=== PATIENT | female | born 1960 | race Caucasian/White ===

== ENCOUNTER 2022-01-14 09:35 | Inpatient (IN) | payer MEDICAID ==
[~2022-01-14] VITALS: Ht 121.9 cm; Wt 62.6 kg
[2022-01-14] MEDS ORDERED: LEVO25TA9 PO (09:49)
[2022-01-14] MEDS: HALOPERIDOL LACTATE 5 MG/ML VIAL IM ONE ×2 (11:04→15:03)
[2022-01-14] MEDS: DiphenhydrAMINE HCL 50 MG/ML VIAL IM ONE ×2 (11:04→15:02)
[2022-01-14] MEDS: LORazepam 2 MG/ML VIAL IM ONE ×2 (11:04→15:02)
[2022-01-14] MEDS ORDERED: ZOLPIDEM TARTRATE 10 MG TABLET PO PRN (11:45)
[2022-01-14] MEDS ORDERED: HALOPERIDOL 5 MG TABLET PO PRN (11:45)
[2022-01-14] MEDS ORDERED: LORazepam 2 MG TABLET PO PRN (11:45)
[2022-01-14 12:26] LABS: BASOPHILS % (AUTO) 0.3 % (0.0-2.0); HEMATOCRIT 37.8 % (36-46); HEMOGLOBIN 12.5 g/dL (12.0-16.0); LYMPHOCYTES # (AUTO) 1.6 K/uL (1.0-4.8); LYMPHOCYTES % (AUTO) 35.6 % (22.0-44.0); MEAN CORPUSCULAR HEMOGLOBIN 29.9 pg (26.0-34.0); MEAN CORPUSCULAR VOLUME 91 fL (80-100); MONOCYTES # (AUTO) 0.4 K/uL (0.1-1.0); MONOCYTES % (AUTO) 8.2 % (2.0-9.0); NEUTROPHILS # (AUTO) 2.2 K/uL (1.8-7.7); NEUTROPHILS % (AUTO) 50.9 % (40.0-70.0); PLATELET COUNT (AUTO) 252 K/uL (150-450); RED BLOOD CELL COUNT(AUTO) 4.18 MIL/uL (4.00-5.20); RED CELL DISTRIBUTION WIDTH 16.2 % (11.5-14.5)
[2022-01-14 12:36] LABS: ANION GAP 6 mmol/L (8-16); CALCIUM, TOTAL 8.8 mg/dL (8.8-10.5); CARBON DIOXIDE 28 mmol/L (22-29); CHLORIDE 101 mmol/L (98-107); CREATININE 0.65 mg/dL (0.60-1.30); GLUCOSE,RANDOM 97 mg/dL (70-110); POTASSIUM 3.2 mmol/L (3.5-5.1); SODIUM SERUM 135 mmol/L (136-145); UREA NITROGEN, BLOOD 7 mg/dL (7-18)
[2022-01-14 12:39] LABS: GLOMERULAR FILTR. RATE CALC > 60 mL/min (>60)
[2022-01-14 12:42] LABS: ALANINE AMINOTRANSFERASE 17 U/L (12-78); ALBUMIN 3.1 g/dL (3.4-5.0); ALKALINE PHOSPHATASE 56 U/L (46-116); ASPARTATE AMINOTRANSFERASE 21 U/L (15-37); BILIRUBIN,TOTAL 0.4 mg/dL (0.1-1.0); TOTAL PROTEIN, SERUM 6.6 g/dL (6.4-8.2)
[2022-01-14 20:01] LABS: COVID AG,FIA SOURCE NASAL SWAB
[2022-01-15 10:00] VITALS: BP 123/55
[2022-01-15] MEDS ORDERED: NICOTINE 7 MG/24 HOUR PATCH TD ONE (13:00)
[2022-01-15] MEDS ORDERED: LEVO88TA7 PO (13:01)
[2022-01-15] MEDS ORDERED: FLUD.1 PO (13:01)
[2022-01-15] MEDS ORDERED: ALEN70TA80 PO (13:01)
[2022-01-15] MEDS ORDERED: RISP0.5T39 PO (13:01)
[2022-01-15] MEDS ORDERED: HYDR-3887 PO (13:01)
[2022-01-15] MEDS ORDERED: ATOR20TA65 PO (13:01)
[2022-01-15 16:34] VITALS: BP 117/70
[2022-01-15] MEDS: FLUDROCORTISONE ACETATE 0.1 MG TABLET PO SCH (16:34)
[2022-01-15] MEDS: HYDROCORTISONE 10 MG TABLET PO SCH (16:34)
[2022-01-15] MEDS: ATORVASTATIN CALCIUM 20 MG TABLET PO SCH (20:34)
[2022-01-16] VITALS: BP 112/66
[2022-01-16] MEDS: LEVOTHYROXINE SODIUM 88 MCG TABLET PO SCH ×2 (05:31→06:01)
[2022-01-16] MEDS: ALENDRONATE SODIUM 70 MG TABLET PO SCH ×2 (05:32→06:01)
[2022-01-16] MEDS ORDERED: LOPERAMIDE HCL 2 MG CAPSULE PO PRN (06:15)
[2022-01-16] MEDS ORDERED: PETROLATUM,WHITE 28 GM JELLY TP PRN (06:15)
[2022-01-16] MEDS ORDERED: ONDANSETRON HCL 4 MG TABLET PO PRN (06:15)
[2022-01-16] MEDS ORDERED: MAGNESIUM HYDROXIDE SUSPENSION 30 ML UDCUP PO PRN (06:15)
[2022-01-16] MEDS ORDERED: NICOTINE 14 MG/24 HOUR PATCH TD PRN (06:15)
[2022-01-16] MEDS ORDERED: MAG HYDROX/AL HYDROX/SIMETH ES 30 ML SUSPENSION UDCUP PO PRN (06:15)
[2022-01-16] MEDS ORDERED: DOCUSATE SODIUM 100 MG CAPSULE PO PRN (06:15)
[2022-01-16] MEDS ORDERED: GuaiFENesin/D-METHORPHAN [SUGAR-FREE] 200-20MG/10 ML SYRUP UDCUP PO PRN (06:15)
[2022-01-16] MEDS ORDERED: IBUPROFEN 400 MG TABLET PO PRN (06:15)
[2022-01-16] MEDS ORDERED: ALBUTEROL SULFATE HFA 90 MCG/PUFF 8 GM INHALER IH PRN (06:15)
[2022-01-16] MEDS ORDERED: ACETAMINOPHEN 325 MG TABLET PO PRN (06:15)
[2022-01-16] MEDS ORDERED: CloNIDine HCL 0.1 MG TABLET PO PRN (06:15)
[2022-01-16 08:02] VITALS: BP 110/60
[2022-01-16] MEDS: FLUDROCORTISONE ACETATE 0.1 MG TABLET PO SCH (08:58)
[2022-01-16] MEDS: HYDROCORTISONE 10 MG TABLET PO SCH ×2 (08:59→17:12)
[2022-01-16 16:04] VITALS: BP 134/60
[2022-01-16] MEDS: RisperiDONE 0.5 MG TABLET PO SCH (17:12)
[2022-01-16] MEDS: ATORVASTATIN CALCIUM 20 MG TABLET PO SCH (20:13)
[2022-01-17 00:26] VITALS: BP 143/64
[2022-01-17] MEDS: LEVOTHYROXINE SODIUM 88 MCG TABLET PO SCH (06:15)
[2022-01-17 07:57] LABS: CHOL/HDL RATIO 3.7 (3.9-5.7); FREE T4 (FREE THYROXINE) 0.93 ng/dL (0.76-1.46); POTASSIUM 3.5 mmol/L (3.5-5.1); THYROID STIMULATING HORMONE 2.92 uIU/mL (0.36-3.74)
[2022-01-17 08:13] VITALS: BP 141/60
[2022-01-17] MEDS: RisperiDONE 0.5 MG TABLET PO SCH ×2 (08:13→16:02)
[2022-01-17] MEDS: HYDROCORTISONE 10 MG TABLET PO SCH ×2 (08:13→16:01)
[2022-01-17] MEDS: FLUDROCORTISONE ACETATE 0.1 MG TABLET PO SCH (08:13)
[2022-01-17 16:13] VITALS: BP 135/63
[2022-01-17] MEDS: ATORVASTATIN CALCIUM 20 MG TABLET PO SCH (20:36)
[2022-01-18 01:28] VITALS: BP 131/71
[2022-01-18] MEDS: LEVOTHYROXINE SODIUM 88 MCG TABLET PO SCH (06:23)
[2022-01-18] MEDS: HYDROCORTISONE 10 MG TABLET PO SCH (08:14)
[2022-01-18] MEDS: FLUDROCORTISONE ACETATE 0.1 MG TABLET PO SCH (08:14)
[2022-01-18] MEDS: RisperiDONE 0.5 MG TABLET PO SCH (08:15)
[2022-01-18 08:25] VITALS: BP 147/60
[2022-01-18] MEDS ORDERED: RISP0.5T66 PO (12:03)
[2022-01-18 16:05] VITALS: BP 101/64
== END 2022-01-18 12:30 | disposition home or self-care (01) | DRG 753 ==
LOC: EMS 09:35 → B3A 01-15 08:35 → UNDOADMIN 01-15 09:09 → B3A 01-15 09:09
PROVIDERS: ADMIT Psychiatry & Neurology Child & Adolescent Psychiatry; ATTEND Psychiatry & Neurology Child & Adolescent Psychiatry
DX: F31.2 Bipolar disorder, current episode manic severe with psychotic features (principal); E27.1 Primary adrenocortical insufficiency; E03.9 Hypothyroidism, unspecified; E78.5 Hyperlipidemia, unspecified; E87.6 Hypokalemia; F10.10 Alcohol abuse, uncomplicated; F17.200 Nicotine dependence, unspecified, uncomplicated; M81.0 Age-related osteoporosis without current pathological fracture; F41.9 Anxiety disorder, unspecified; Y90.9 Presence of alcohol in blood, level not specified; J30.9 Allergic rhinitis, unspecified; Z20.822 Contact with and (suspected) exposure to COVID-19; Z71.6 Tobacco abuse counseling
CPT/HCPCS: 80053; 80061; 84132; 84439; 84443; 85025; 99285; G0480; J1200; J1630; J2060

== ENCOUNTER 2022-02-04 10:29 | Emergency (ER) | payer MEDICAID ==
[~2022-02-04] VITALS: Ht 139.7 cm; Wt 68.2 kg
[~2022-02-04 10:29] MED LIST: ALEN70TA80 PO; ATOR20TA65 PO; FLUD.1 PO; HYDR-3887 PO; LEVO88TA7 PO; RISP0.5T39 PO; RISP0.5T66 PO
[2022-02-04] MEDS ORDERED: LORazepam 1 MG TABLET PO ONE (11:45)
[2022-02-04 11:50] VITALS: BP 162/84
== END 2022-02-04 12:26 | disposition home or self-care (01) ==
LOC: EMS 10:29
DX: F41.9 Anxiety disorder, unspecified (principal); F17.210 Nicotine dependence, cigarettes, uncomplicated; F31.9 Bipolar disorder, unspecified; E03.9 Hypothyroidism, unspecified; F20.9 Schizophrenia, unspecified; E27.1 Primary adrenocortical insufficiency
CPT/HCPCS: 99283

== ENCOUNTER 2023-03-03 12:32 | Emergency (ER) | payer MEDICAID ==
[~2023-03-03] VITALS: Ht 147.3 cm; Wt 77.0 kg
[~2023-03-03 12:32] MED LIST changes: +ALBU18HF12 IH; +ALEN70TA65 PO; -ALEN70TA80 PO; +AMLO-257 PO; +ARIP10TA38 PO; +ATOR20TA PO; -ATOR20TA65 PO; +GUAIF10 PO; -HYDR-3887 PO; +HYDR5TAB8 PO; +LEVO750T68 PO; +POTA-92 PO; -RISP0.5T39 PO; -RISP0.5T66 PO; +RISP1TAB48 PO
[2023-03-03 12:36] VITALS: BP 108/68; PULSE 100; RESP 18; TEMP 99.5
[2023-03-03 12:50] LABS: COVID AG,FIA SOURCE NASAL SWAB
[2023-03-03 13:12] LABS: INFLUENZA TYPE A NEGATIVE FOR TYPE A (NEGATIVE); INFLUENZA TYPE B NEGATIVE FOR TYPE B (NEGATIVE)
[2023-03-03] MEDS ORDERED: AZIT250T9 PO (13:16)
[2023-03-03] MEDS ORDERED: BENZ-227 PO (13:16)
== END 2023-03-03 13:54 | disposition home or self-care (01) ==
LOC: EMS 12:33
DX: J18.0 Bronchopneumonia, unspecified organism (principal); F31.9 Bipolar disorder, unspecified; E78.00 Pure hypercholesterolemia, unspecified; I10 Essential (primary) hypertension; E03.9 Hypothyroidism, unspecified; F17.210 Nicotine dependence, cigarettes, uncomplicated; F10.90 Alcohol use, unspecified, uncomplicated; Z88.0 Allergy status to penicillin; Z20.822 Contact with and (suspected) exposure to COVID-19
CPT/HCPCS: 71045; 87804; 99284